=== PATIENT | male | born 1960 | race Two or more races ===

== ENCOUNTER 2016-09-02 14:23 | Emergency (ER) | payer MEDICAID ==
[~2016-09-02] VITALS: Ht 170.2 cm; Wt 73.3 kg
[2016-09-02 14:30] VITALS: BP 143/84
[2016-09-02 16:07] LABS: Urine RBC None Seen /hpf (0 - 3)
[2016-09-02 16:40] LABS: Urine Bilirubin Negative (Negative); Urine Blood Negative /uL (Negative); Urine Color Yellow (Yellow); Urine Glucose Normal (Normal); Urine Ketone Negative (Negative); Urine Nitrite Negative (Negative); Urine Squamous Epithelial Cell FEW /hpf (<5); Urine Urobilinogen Normal (Negative); Urine pH 5.5 (5.0-8.0)
[2016-09-02] MEDS ORDERED: KETOROLAC TROMETH 60MG/2ML VIAL IM ONE (17:00)
== END 2016-09-02 18:19 | disposition home or self-care (01) ==
LOC: ER 14:24
DX: N20.0 Calculus of kidney (principal); N28.1 Cyst of kidney, acquired
CPT/HCPCS: 74176; 81001; 96372; 99285; J1885